=== PATIENT | male | born 1965 | race Caucasian/White ===

== ENCOUNTER 2017-02-22 06:57 | Day surgery (SDC) | payer BC ==
--- NOTE | 2017-02-22 08:10 | Operative Note ---
Endoscopy Report Date: 02/22/17 Preoperative diagnosis: Dysphagia Procedure Type of procedure: Esophagogastroduodenoscopy with biopsies and dilatation to 20 mm. Indications: 51-year-old white male. Referred for upper endoscopy for a 6 month history of solid food dysphagia. Consent was obtained and patient was taken to same-day surgery endoscopy procedure room. He was positioned in a lateral decubitus position. Adequate intravenous sedation was achieved. Olympus endoscope was inserted via the oropharynx. Majority of the esophagus was normal however at the gastroesophageal junction there was evidence of focal erosive esophagitis. 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 Stomach was cannulated and insufflated. Retroflexion revealed noted to any significant hiatal hernia. Biopsy was obtained of the gastric mucosa. Duodenal biopsies were obtained. There was some prominent mucosa within the duodenal bulb but no evidence of any obvious duodenitis. Several biopsies were obtained of the gastroesophageal junction. Dilatation was performed initially to 18 then 19 and then 20 mm using the pneumatic balloon dilator. Endoscope was withdrawn and then readvanced into the esophagus and into the gastric lumen. Stomach was desufflated and the endoscope was withdrawn. Findings 1. Stricture, esophagitis Follow-Up Follow-Up: Initiate proton pump inhibitors. Follow up on the histopathology closely. at 0810
--- NOTE | 2017-02-22 08:57 | RADIOLOGY REPORT PS360 ---
CHEST-PORTABLE HISTORY: Postoperative pain ESOPHAGEAL DILATION ORDERING PHYSICIAN: Hammad Matson MD PATIENT AGE: 51 years COMPARISON: None available FINDINGS: The cardiomediastinal silhouette and pulmonary vascularity are within normal limits. The lungs are clear without infiltrates, suspicious nodules, or pleural effusions. No acute bony abnormalities. No evidence of pneumothorax or pneumomediastinum. No obvious pneumoperitoneum IMPRESSION: Negative chest, no acute finding
[2017-02-22 13:35] VITALS: BP 144/78
== END 2017-02-22 09:10 | disposition home or self-care (01) ==
LOC: SDC 06:57
PROVIDERS: Surgery
PROC: 0DB98ZX Excision of Duodenum, Via Natural or Artificial Opening Endoscopic, Diagnostic (ICD-10-PCS; 2017-02-22)
PROC: 0DB68ZX Excision of Stomach, Via Natural or Artificial Opening Endoscopic, Diagnostic (ICD-10-PCS; 2017-02-22)
PROC: 0DB48ZX Excision of Esophagogastric Junction, Via Natural or Artificial Opening Endoscopic, Diagnostic (ICD-10-PCS; 2017-02-22)
PROC: 0D758ZZ Dilation of Esophagus, Via Natural or Artificial Opening Endoscopic (ICD-10-PCS; principal; 2017-02-22 07:30)
DX: K20.9 Esophagitis, unspecified (principal); K22.70 Barrett's esophagus without dysplasia; K22.2 Esophageal obstruction
CPT/HCPCS: C1726

== ENCOUNTER → 2017-07-08 | Outpatient (CLI) | payer BC ==
[2017-07-08 10:58] LABS: BUN 10 mg/dL (7-18)
[2017-07-08 11:03] LABS: GFR (ESTIMATED) 102 ML/MIN (>60)
== END ==
LOC: LAB 09:26
PROVIDERS: Internal Medicine Adolescent Medicine
DX: E11.69 Type 2 diabetes mellitus with other specified complication (principal); E11.9 Type 2 diabetes mellitus without complications